=== PATIENT | female | born 1930 | race Caucasian/White ===

== ENCOUNTER 2017-12-26 07:37 | Inpatient (IN) | payer MEDICARE ==
[2017-12-26] VITALS (51 sets, daily range): BP systolic 118–152; BP diastolic 59–122
[~2017-12-26] VITALS: Ht 157.5 cm; Wt 49.2 kg
[~2017-12-26 07:37] MED LIST: ASPIRIN CHEW81 MG PO; CEPHALEXIN500 MG PO; CLONAZEPAM0.5 MG PO; FEROCON CAPSUL1 EACH PO; LASIX20 MG PO; LIPITOR20 MG PO; LOPRESSOR25 MG PO; SODIUM BICARBO650 MG PO
[2017-12-26] MEDS ORDERED: PIPERACILLIN/TAZO 2.25 GM 50 ML IV STA (07:43)
[2017-12-26] MEDS ORDERED: ALBUTEROL SULF 0.083% NEB SOLN 3 ML NEB NEB STA (07:43)
[2017-12-26] MEDS ORDERED: ASPIRIN 81 MG CHEW TAB PO ONE (07:45)
[2017-12-26] MEDS: SODIUM CHLORIDE FLUSH 10 ML SYR INJ PRN ×2 (08:00→12:31)
[2017-12-26 08:37] LABS: BASOPHILS % 0.1 % (0.0-1.0); EOSINOPHILS % 0.1 % (0.0-6.0); LYMPHOCYTES # (AUTO) 0.7 (1.0-3.2); LYMPHOCYTES % 4.7 % (18.0-39.1); MEAN CORPUSCULAR HEMOGLOBIN 27.3 pg (28-32); MEAN CORPUSCULAR HGB CONC 30.9 g/dL (31-35); MEAN CORPUSCULAR VOLUME 88.4 fL (81-99); MONOCYTES # (AUTO) 0.4 (0.2-0.8); MONOCYTES % 2.5 % (4.4-11.3); NEUTROPHILS # (AUTO) 13.9 (2.1-6.9); NEUTROPHILS % 91.9 % (38.7-80.0); PLATELET COUNT 311 x10e3/uL (140-360); RED BLOOD COUNT 2.49 x10e6/uL (3.6-5.1); RED CELL DISTRIBUTION WIDTH 16.6 % (11.7-14.4)
[2017-12-26] MEDS ORDERED: SENNOSIDES-DOC1 EACH PO (08:37)
[2017-12-26] MEDS ORDERED: SERTRALINE HCL50 MG PO (08:37)
[2017-12-26] MEDS ORDERED: LEVOTHYROXINE75 MCG PO (08:37)
[2017-12-26] MEDS ORDERED: ASPIRIN EC81 MG PO (08:37)
[2017-12-26] MEDS ORDERED: MEGESTROL ACETA40 MG PO (08:37)
[2017-12-26] MEDS ORDERED: IPRAT-ALBUT 0.5-3 ML INH (08:37)
[2017-12-26] MEDS ORDERED: METOPROLOL TART50 MG PO (08:37)
[2017-12-26] MEDS ORDERED: PANTOPRAZOLE SO40 MG PO (08:37)
[2017-12-26] MEDS ORDERED: CALCIUM ACETAT667 MG PO (08:37)
[2017-12-26] MEDS ORDERED: ALPRAZOLAM0.25 MG PO (08:37)
[2017-12-26] MEDS ORDERED: PROMETHAZINE HC25 M1 PO (08:37)
--- NOTE | 2017-12-26 08:37 | Diagnostic Imaging Report ---
EXAMINATION: CHEST SINGLE (PORTABLE) INDICATION: Shortness of breath. Pain. COMPARISON: /December 18, 2016 FINDINGS: AP view TUBES and LINES: Left sided tunneled double lumen central venous catheter. Distal tip within the right atrium. LUNGS: Bilateral pulmonary edema with possible superimposed infection. PLEURA: No pneumothorax. Small bilateral pleural effusions. HEART AND MEDIASTINUM: Enlarged cardiac silhouette. Aorta is calcified and tortuous. BONES AND SOFT TISSUES: No acute osseous lesion. Mild dextroscoliosis of thoracic spine. Soft tissues are unremarkable. UPPER ABDOMEN: No free air under the diaphragm. IMPRESSION: Bilateral alveolar pulmonary edema. Superimposed infection not excluded in the proper clinical setting. Signed by: Dr. Kimmie East M.D. on 12/26/2017 8:33 AM
[2017-12-26 08:39] LABS: ABG PCO2 42 mmHg (41-51); ABG PH 7.43 (7.31-7.41)
[2017-12-26 08:40] LABS: ABG HCO3 29 mmol/L (23-28); ABG PO2 141 mmHg (80-105)
[2017-12-26 08:41] LABS: HEMOGLOBIN 6.8 g/dL (12.0-16.0)
[2017-12-26 08:42] LABS: ABG PCO2 42 mmHg (41-51); ABG PH 7.43 (7.31-7.41)
[2017-12-26 08:43] LABS: ABG HCO3 29 mmol/L (23-28); ABG PO2 141 mmHg (80-105)
[2017-12-26] MEDS ORDERED: SODIUM CHLORIDE 0.9% 250ML 250 ML IV ONE (08:45)
[2017-12-26 08:46] LABS: INR 1.17
[2017-12-26 08:47] LABS: PARTIAL THROMBOPLASTIN TIME 29.1 seconds (23.8-35.5)
[2017-12-26 08:58] LABS: ALBUMIN 2.9 g/dL (3.5-5.0); ALBUMIN/GLOBULIN RATIO 0.7 (0.8-2.0); ANION GAP 19.1 mmol/L (8-16); CALCIUM 9.1 mg/dL (8.4-10.2); CREATININE, SERUM 3.8 mg/dL (0.57-1.11); MAGNESIUM 1.5 MG/DL (1.3-2.1); POTASSIUM 4.1 mmol/L (3.5-5.1)
[2017-12-26 08:59] LABS: CLARITY,URINE CLOUDY (CLEAR); COLOR,URINE AMBER (YELLOW)
[2017-12-26 09:00] LABS: BILIRUBIN,URINE 2+ (NEGATIVE); KETONES,URINE TRACE (NEGATIVE); LEUKOCYTE ESTERASE ,URINE TRACE (NEGATIVE); NITRITE,URINE NEGATIVE (NEGATIVE); PROTEIN,URINE DIPSTICK 3+ (NEGATIVE); URINE UROBILINOGEN 0.2 mg/dL (0.2 - 1)
[2017-12-26] MEDS ORDERED: PANTOPRAZOLE 40 MG 10ML VIAL IV STA (09:00)
[2017-12-26 09:01] LABS: BACTERIA,URINE FEW /HPF; EPITHELIAL CELLS,URINE FEW /LPF; RBC,URINE 21-50 /HPF (0-5); WBC,URINE (MAN) 21-50 /HPF (0-5)
[2017-12-26 09:05] LABS: CREATINE KINASE MB 3.3 ng/mL (0-5.0)
[2017-12-26] MEDS: PIPERACILLIN/TAZO 2.25 GM 50 ML IV SCH ×2 (09:55→20:03)
[2017-12-26] MEDS ORDERED: VANCOMYCIN 1GM/NS 250 ML 250 ML IV ONE (10:30)
[2017-12-26 11:22] LABS: CREATINE KINASE MB 4.7 ng/mL (0-5.0)
[2017-12-26] MEDS ORDERED: ONDANSETRON HCL INJ 2 MG/ML VIAL ONE (11:50)
[2017-12-26] MEDS ORDERED: ONDANSETRON HCL INJ 2 MG/ML VIAL IV PRN (12:00)
[2017-12-26] MEDS: ALBUTEROL SULF 0.083% NEB SOLN 3 ML NEB NEB SCH ×4 (12:04→22:55)
[2017-12-26] MEDS ORDERED: PROMETHAZINE HCL 25 MG TAB PO PRN (13:30)
[2017-12-26] MEDS ORDERED: SENNA-S TABLET PO PRN (13:30)
--- NOTE | 2017-12-26 13:32 | Consultation ---
DATE OF CONSULTATION: December 26, 2017 REQUESTING PHYSICIAN: Dr. Bello. REASON FOR CONSULTATION: ESRD. Thank you for allowing us to participate in Ms. Corona's care. HISTORY OF PRESENT ILLNESS: This is an 87-year-old female with recent history of CKD that is now progressed to end-stage renal disease. She came in with worsening dyspnea for the last 3 to 4 days, apparently hypoxic en route. She has some swelling, does have trouble with fluid removal on dialysis. She has been progressively getting weak. PAST HISTORY: CKD stage 4, hypertension, anemia of CKD which is now worsened, and end-stage renal disease. SOCIAL HISTORY: Resides at long term. MEDICATIONS: Please see list. REVIEW OF SYSTEMS: She is lethargic and she is somewhat drowsy at this point, unable to obtain review of systems, not cooperating due to drowsiness. She says she is tired. PHYSICAL EXAMINATION GENERAL: Lying in bed, no distress, but does appear frail. VITAL SIGNS: Temperature 98 degrees, pulse 85, blood pressure 150/78. HEENT: Grossly atraumatic. Oral mucosa is pale. NECK: Neck veins are prominent. JVD perhaps 7 to 8 cm. CHEST: Faint crackles at the bases. CARDIAC: Faint systolic murmur. Normal heart tone. ABDOMEN: Benign. Liver palpable in the right costal margin. EXTREMITIES: 1+ edema. NEURO: She is sleepy, but when she does awake a few times, she seems to be appropriate. LABORATORY DATA: Hemoglobin 6.8. UA shows some proteinuria. K is 4.1, serum CO2 is 27, creatinine 3.8, BUN 37. PH 7.43. Chest x-ray is consistent with fluid overload. ASSESSMENT 1. End-stage renal disease. 2. Chronic anemia, which is worsened. 3. Fluid overload. 4. Hypertension. 5. History of failure to thrive. 6. Hyperphosphatemia, on binders. PLAN: Hemodialysis today, transfuse 2 units in dialysis. Because of the fluid overload, I think she will need an extra session today and get back to usual Wednesday, Wednesday, and Wednesday schedule. One dose of Epogen. I will check outpatient labs for iron stores. We will follow along. Job#: [id number] JIMBO
[2017-12-26] MEDS ORDERED: SODIUM CHLORIDE 0.9% 1000ML 1,000 ML ONE (13:49)
[2017-12-26] MEDS ORDERED: HEPARIN SOD (PORCINE) 1000 UNIT/ML SDV ONE (13:49)
[2017-12-26 14:14] LABS: FOLATE 12.4 ng/mL (7.0-15.4)
[2017-12-26 14:53] LABS: FERRITIN 3893.72 ng/mL (4.63-204.00)
[2017-12-26] MEDS: ALBUTEROL/IPRATROPIUM 3 ML NEB INH PRN (17:48)
[2017-12-26 18:40] LABS: CREATINE KINASE MB 7.3 ng/mL (0-5.0)
[2017-12-26 19:15] LABS: HEMATOCRIT 27.1 % (34.2-44.1); HEMOGLOBIN 9.1 g/dL (12.0-16.0)
[2017-12-26] MEDS: METOPROLOL TARTRATE 50 MG TAB PO SCH (20:02)
--- NOTE | 2017-12-26 20:33 | Consultation ---
DATE OF CONSULTATION: December 26, 2017 PULMONARY CRITICAL CARE MEDICINE CONSULT REFERRING PHYSICIAN: Dr. aOkes. REASON FOR REFERRAL: Respiratory failure. HISTORY OF PRESENT ILLNESS: Ms. Corona is a pleasant 87-year-old female with shortness of breath. Patient has a history of CKD and she was just started on dialysis 3 weeks ago. In the last couple of months, she was hospitalized for 10 days and then for 7 days due to renal failure at outside hospital. She was transferred to senior care facility where she was at for 14 days which is better than the last couple of hospitalizations until she became more short of breath. She was able to walk 350 feet at least with a walker at rehab. When she was sent to the emergency room, it was noted that her saturation was 70% on room air. Chest x-ray showed bilateral large pulmonary edema and possible small pleural effusions. Additionally, there was urinalysis abnormality and some anemia. She was recommended for admission to the ICU due to severity of symptoms. PAST MEDICAL HISTORY: Hypertension, end-stage renal disease, left subclavian versus left chest wall vascular access, anemia, hearing impairment, 2017 CVA, 2017 [place]. MEDICATIONS: Medication list reviewed per electronic record includes Zosyn antibiotic and vancomycin antibiotics now. ALLERGIES: No known drug allergies. SOCIAL HISTORY: No smoking, no drinking, no drugs. The patient is from [place], [place], but did live in [place] for 30 years where her son currently lives. She was formerly a sed high school teacher. No smoking, no drinking, no drugs. FAMILY HISTORY: Noncontributory. REVIEW OF SYSTEMS: Cannot get largely due to hearing impairment. OBJECTIVE VITAL SIGNS: Afebrile, vital signs noted per electronic record. GENERAL: Mild increased work of breathing, slightly pale. HEENT: Normocephalic, atraumatic. NECK: Supple. Throat midline. LUNGS: Bilateral air entry. A few rhonchi. CARDIOVASCULAR: S1, S2. No murmurs, rubs, or gallops. ABDOMEN: Soft, nontender. EXTREMITIES: No clubbing, no cyanosis. There is 2+ leg edema. INTEGUMENT: No rash. No purpura. LABORATORY DATA: Potassium 4.1, BUN 37, creatinine 3.8. White count 15, hematocrit 22, platelets 311,000. Urinalysis with 21-50 white cells per high power field. INR 1.17. Chest x-ray with bilateral large edema. IMPRESSION: 1. Pulmonary edema, fluid overload. 2. Possible pneumonia. 3. Abnormal urinalysis, urinary tract infection. 4. Significant anemia. 5. Hypoxemia. 6. End-stage renal disease. 7. History of stroke. 8. History of myocardial infarction. 9. Hypertension. 10. History of hearing impairment. PLAN: At this time, we will continue current treatment. Dialysis planned for today emergently as well as tomorrow. Hopefully, there is some quick improvement. Afterwards, we will reevaluate the chest x-ray to ensure there is no significant pleural effusion. Patient had CT chest at outside hospital which we will attempt to review. Follow up cultures, especially urine culture and treat appropriately with antibiotics. Afterwards, we want the patient to stay strong and moving. It is also reasonable to see why the patient can only go short times outside of the hospital, so we may need to look at her heart or dialysis adequacy or nutrition status. Thank you very much Dr. Oakes for allowing me a chance to participate in care of Ms. Corona. Do not hesitate to contact me if I can help in any way. Job#: [id number] CLEMENT
--- NOTE | 2017-12-26 21:48 | History and Physical ---
HISTORY OF PRESENT ILLNESS: An 87-year-old female, alf resident, who came from the alf because of shortness of breath. She was found to have aspiration pneumonia and acute on chronic systolic congestive heart failure and severe anemia also. REVIEW OF SYSTEMS: The patient is extremely sleepy. She cannot give any information. She is getting dialysis right now. PAST MEDICAL HISTORY: Positive for chronic congestive heart failure which is systolic in nature, end-stage renal disease on dialysis, anemia of chronic disease, coronary artery disease status post Non-STEMI. ALLERGIES: NOT ALLERGIC TO ANY MEDICATION. SOCIAL HISTORY: She lives in alf. PHYSICAL EXAMINATION: VITAL SIGNS: Blood pressure 150/78. Heart rate 68 per minute, respiratory rate 18 per minute. Oxygen pressure 100%. HEART: Regular rhythm. No murmur. No extra sounds. LUNGS: Clear bilaterally. ABDOMEN: Soft. EXTREMITIES: Show no evidence of cyanosis, edema or trauma. BLOOD WORK: We have BMP sodium 139, potassium 4.1, chloride 97. CO2 27. BUN 37, creatinine 3.80. Glucose 144. On the CBC white blood count 15.1, hemoglobin 6.8, hematocrit 22.0, platelet count 311,000. PT 14.0. PTT 29.1. INR 1.17. AST 14, ALT 7. Total bilirubin 0.7, alkaline phosphatase 69,000. We also have chest x-ray which showed an infiltrate in the right perihilar region and right middle lobe and left perihilar region consistent with pneumonia. CHF and vascular congestion. The blood gas shows ph of 7.43, pCO2 of 42, pO2 141, oxygen saturation 99%. EKG showed no acute ischemia, normal sinus rhythm, rate 97 per minute. Normal P waves. Abnormal QRS complex, wide QRS complex, left bundle branch block, left axis deviation. Abnormal ST-T waves. Abnormal QT. FINAL IMPRESSION 1. Aspiration pneumonia. 2. Hzpqj-hb-umioysy systolic congestive heart failure. 3. End-stage disease on dialysis. 4. Gbqyc-cu-wrdlikm anemia. 5. Coronary artery disease, status post Non-STEMI. 6. Leukocytosis. PLAN OF TREATMENT: Continue albuterol q.4 h. Zosyn 3.375 grams IV piggyback q.6 hours. Going to consult Dr. Abrams for pulmonary and also going to consult Dr. Figueredo for renal services. Going to resume alf medications. Patient is in the ICU right now. Time Spent: Around 45 to 50 minutes. Job#: [id number] YOVANNY
[2017-12-26] MEDS ORDERED: HYDROCODONE/APAP 10MG-325MG TAB PO PRN (22:30)
[2017-12-26] MEDS ORDERED: CYANOCOBALAMIN INJ 1,000 MCG/ML VIAL IM STA (23:48)
[2017-12-27] VITALS (79 sets, daily range): BP systolic 105–155; BP diastolic 51–103
[2017-12-27] MEDS: PIPERACILLIN/TAZO 2.25 GM 50 ML IV SCH ×5 (01:27→23:09)
[2017-12-27] MEDS: ALBUTEROL SULF 0.083% NEB SOLN 3 ML NEB NEB SCH ×6 (03:02→23:10)
[2017-12-27 03:07] LABS: CALCIUM 8.3 mg/dL (8.4-10.2); CREATININE, SERUM 3.17 mg/dL (0.57-1.11)
[2017-12-27 03:31] LABS: ANION GAP 14.3 mmol/L (8-16); POTASSIUM 4.3 mmol/L (3.5-5.1)
[2017-12-27 03:37] LABS: CREATINE KINASE MB 3.7 ng/mL (0-5.0)
[2017-12-27] MEDS: LEVOTHYROXINE SODIUM 75 MCG TAB PO SCH (05:42)
[2017-12-27 06:05] LABS: BASOPHILS % 0.3 % (0.0-1.0); EOSINOPHILS # (AUTO) 0.1 (0.0-0.4); EOSINOPHILS % 0.4 % (0.0-6.0); HEMATOCRIT 26.5 % (34.2-44.1); HEMOGLOBIN 8.6 g/dL (12.0-16.0); LYMPHOCYTES # (AUTO) 1.9 (1.0-3.2); LYMPHOCYTES % 16.4 % (18.0-39.1); MEAN CORPUSCULAR HEMOGLOBIN 28.8 pg (28-32); MEAN CORPUSCULAR HGB CONC 32.5 g/dL (31-35); MEAN CORPUSCULAR VOLUME 88.6 fL (81-99); MONOCYTES # (AUTO) 0.5 (0.2-0.8); MONOCYTES % 4.1 % (4.4-11.3); NEUTROPHILS # (AUTO) 9.1 (2.1-6.9); NEUTROPHILS % 78.3 % (38.7-80.0); PLATELET COUNT 245 x10e3/uL (140-360); RED BLOOD COUNT 2.99 x10e6/uL (3.6-5.1); RED CELL DISTRIBUTION WIDTH 15.6 % (11.7-14.4)
[2017-12-27 06:24] LABS: ALBUMIN 2.5 g/dL (3.5-5.0); ALBUMIN/GLOBULIN RATIO 0.7 (0.8-2.0); ANION GAP 13.6 mmol/L (8-16); CALCIUM 8.6 mg/dL (8.4-10.2); CREATININE, SERUM 3.5 mg/dL (0.57-1.11); POTASSIUM 4.6 mmol/L (3.5-5.1)
--- NOTE | 2017-12-27 06:37 | Diagnostic Imaging Report ---
CHEST SINGLE (PORTABLE), 12/27/2017 5:00 AM Technique: CHEST SINGLE (PORTABLE) Comparison: Previous day Clinical history: Effusion Findings: See Impression Impression: 1. Lines/Tubes: Stable left sided dialysis catheter over the inferior right atrium. 2. Stable enlarged cardiomediastinal silhouette. 3. Unchanged bilateral pulmonary opacities which may reflect edema and/or infection. Small effusions. Signed by: Dr Samantha Dang MD on 12/27/2017 6:33 AM
[2017-12-27 07:05] LABS: PHOSPHORUS 3.4 MG/DL (2.3-4.7)
[2017-12-27] MEDS: PANTOPRAZOLE SOD 40 MG TABEC PO SCH (07:36)
[2017-12-27 08:06] LABS: FERRITIN 2770.41 ng/mL (4.63-204.00)
[2017-12-27] MEDS: ASPIRIN 81 MG ENTERIC COATED PO SCH (08:25)
[2017-12-27] MEDS: CYANOCOBALAMIN INJ 1,000 MCG/ML VIAL IM SCH (08:25)
[2017-12-27] MEDS: MEGESTROL ACETATE 40 MG TAB PO SCH (08:26)
[2017-12-27] MEDS: SERTRALINE HCL 50 MG TAB PO SCH (08:26)
[2017-12-27] MEDS: METOPROLOL TARTRATE 50 MG TAB PO SCH ×2 (08:26→16:55)
[2017-12-27] MEDS: CALCIUM ACETATE 667 MG GELCAP PO SCH (08:26)
[2017-12-27] MEDS ORDERED: HEPARIN SOD (PORCINE) 1000 UNIT/ML SDV IV PRN (08:30)
[2017-12-27] MEDS ORDERED: SODIUM CHLORIDE 0.9% 1000ML 1,000 ML IV PRN (08:45)
[2017-12-27] MEDS ORDERED: FUROSEMIDE INJ 10 MG/ML 4 ML VIAL IV SCH (09:00)
[2017-12-27] MEDS ORDERED: POTASSIUM CHLORIDE 20 MEQ TAB CR PO SCH (09:00)
--- NOTE | 2017-12-27 13:09 | Consultation ---
DATE OF CONSULTATION: December 27, 2017 CARDIOLOGY CONSULTATION REASON FOR CONSULTATION: Elevated troponin, CHF. HISTORY OF PRESENT ILLNESS: This is an 87-year-old female with history of CHF, hypertension, end-stage renal disease, anemia, CVA, hard of hearing, hyperlipidemia, hypothyroidism. She presents to [facility] ER with complaints of shortness of breath, fatigue, weakness. Was noted with sats in the 70s on room air. X-ray was done showing bilateral pulmonary edema. Labs also noted. Patient was extremely anemic with hemoglobin of 6.8 and was given 2 units of blood. Also, with labs was noted with elevated troponin. Therefore, cardiology was consulted. Patient was seen in room on dialysis in no acute distress. However, the patient is very hard of hearing, and it is very hard to get any information from the patient. No complaint of chest pain. Seems to be breathing comfortably currently. PAST MEDICAL HISTORY: CHF, hypertension, end-stage renal disease on HD, anemia, hard of hearing, hyperlipidemia, hypothyroidism, history of gastritis and esophagitis, malignant melanoma of the eye. SURGICAL HISTORY: EGD in 2017 showing gastritis and esophagitis. Thyroid surgery. Left IJ HD tunneled catheter. SOCIAL HISTORY: Lives at [facility]. She is a . No alcohol use. Former smoker. FAMILY HISTORY: Unable to obtain. REVIEW OF SYSTEMS: Very difficult to obtain secondary to patient hard of hearing. Does not have her hearing aids. However, denies any chest pains. Denies any shortness of breath currently. No palpitations. No PND. No orthopnea. PHYSICAL EXAMINATION VITALS: Currently, temperature 98.6, pulse 79, respiratory rate 16, blood pressure 150/83, pulse ox 94% on 2 liters nasal cannula. GENERAL: In no acute distress. Appears her stated age. Unable to obtain much information due to patient hard of hearing and does not have her hearing aides. SKIN: No rashes or bruises noted. HEENT: Normocephalic. Pupils are equal and reactive. Extraocular motor intact. Trachea midline. Oral mucosa is pink. No thyromegaly noted. Soft carotid bruit noted bilaterally. Positive JVD. LUNGS: Bilateral breath sounds with crackles throughout. HEART: Regular rate and rhythm. Soft systolic murmur heard in right upper sternal border. PMI in about the 5th intercostal space. There is a left IJ tunneled HD catheter. ABDOMEN: Soft, nontender, nondistended. No organomegaly noted. MUSCULOSKELETAL: Good muscle strength throughout. No lower extremity edema. VASCULAR: There are +2 bilateral radial pulses and +1 DP and PT pulses bilaterally. NEUROLOGIC: Cranial nerves II through XII seem intact. LABS: Sodium 139, potassium 4.1, creatinine 3.8, BUN 37. White count 15, hemoglobin 6.8, hematocrit 22, platelets 311. IMAGING: Initial chest x-ray is showing bilateral alveolar peripheral edema. However, superimposed infection could not be excluded. EKG: Normal sinus rhythm with a left bundle-branch block. ASSESSMENT AND PLAN 1. Akpim-ri-fzdphep systolic heart failure. 2. Pneumonia. 3. End-stage renal disease on hemodialysis. 4. Anemia. 5. Hyperlipidemia. 6. Hypothyroidism. 7. Elevated troponin, most likely demand ischemia. However, coronary artery disease very likely in this patient given her medical history. 8. Patient presents with shortness of breath and noted with some pulmonary edema and questionable pneumonia and is on therapy. However, labs noted with elevated troponin. Currently, the patient is denying any chest pain. However, coronary artery disease is very likely in this patient. Also presents with severe anemia. For now, we will treat the patient medically with a low-dose beta lalo as blood pressure and heart rate permit. Will obtain a lipid panel and start statin therapy. Echo has been ordered and prelim ultrasound showing EF about 30%. However, cardiology will finalize the study. Will continue to monitor the patient and evaluate and adjust cardiac therapy as clinical course progresses. Thank you very much for this consult. Dictated by: Darwin Sprague NP Job#: [id number]
--- NOTE | 2017-12-27 18:50 | Diagnostic Imaging Report ---
PROCEDURE:US RETROPERITONEAL ( KIDNEY ). COMPARISON:Patients [facility], US, US RETROPERITONEAL ( KIDNEY )., 12/21/2016, 12:17. INDICATIONS:Renal failure TECHNIQUE: Reyes-scale and color sonographic images of the bilateral kidneys and bladder where obtained in transverse and longitudinal planes. FINDINGS: RIGHT KIDNEY: 9.2 cm in length. Cysts: None Solid masses: None Stones: None Hydronephrosis: None Echogenicity: Increased LEFT KIDNEY: 9.0 cm in length. Cysts: None Solid masses: None Stones: None Hydronephrosis: None Echogenicity: Increased Bladder: Under distended. Survey images of the liver and spleen demonstrate no focal abnormality. CONCLUSION: Increased renal echotexture consistent with medical renal disease. No renal mass or hydronephrosis. Dictated by: Guerline Argueta M.D. on 12/27/2017 at 18:54 Electronically approved by: Guerline Argueta M.D. on 12/27/2017 at 18:54
[2017-12-27] MEDS: ATORVASTATIN 20 MG TAB PO SCH (20:38)
--- NOTE | 2017-12-27 21:33 | Progress Note ---
DATE: December 27, 2017 INTERNAL MEDICINE PROGRESS NOTE SUBJECTIVE: An 87-year-old female, who is doing better today. PHYSICAL EXAM: VITAL SIGNS: Blood pressure 150/78. Temperature 98 degrees. Heart rate 68 per minute. Respiratory rate is 18 per minute. Oxygen saturation 100%. HEART: Regular rhythm. Normal S1, S2 sounds. LUNGS: Clear bilaterally. ABDOMEN: Soft. EXTREMITIES: Show no evidence of cyanosis or trauma. LABS: On the BMP, sodium 139, potassium 4.1, chloride 97, CO2 27, BUN 37, creatinine 3.80, glucose 144. On the CBC, white blood count 15.1, hemoglobin before the blood transfusion was 6.8 and hematocrit 32.0, platelet count 311,000. PT 14.0, PTT 29.1, INR 1.17. AST 14, ALT 7, total bilirubin 0.7, alkaline phosphatase 69. FINAL IMPRESSION: 1. Aspiration pneumonia. 2. Fddtt-ck-qlquxrb systolic congestive heart failure. 3. End-stage renal disease, on dialysis. 4. Chronic anemia secondary to end-stage renal disease. 5. Coronary artery disease, status post non-ST elevation myocardial infarction. PLAN OF TREATMENT: Continue albuterol q.4 h. Continue Zosyn 3.375 g IV q.6 which needs to redosed according to the renal dose. EGD is going to be considered to evaluate anemia when the patient is more medically stable. Continue monitoring BUN, creatinine, electrolytes. Continue monitoring CBC. Continue diuresing the patient. Follow up urine culture, blood cultures. We are going to follow the CBC after 2 units of blood transfusion she got yesterday. She received Epogen also. Also her medications are going to be Zosyn 2.25 g IV q.6 h., adjusted to renal dose, Tylenol 650 mg q.4 h. as needed for pain or fever, albuterol q.4 h., albuterol and Atrovent q.4 h. as needed, aspirin 81 mg daily, Lipitor 20 mg daily, calcium acetate 1334 mg daily, vitamin B12 1000 mcg has been given IM daily, furosemide 40 mg IV daily, heparin 4000 units for dialysis p.r.n., levothyroxine 75 mcg p.o. daily, Megace 40 mg daily, metoprolol 50 mg twice a day, Zofran 4 mg IV q.4 h. as needed, Protonix 40 mg daily, potassium 20 mEq daily, Zoloft 50 mg daily. Actually I am going to discontinue the potassium because potassium supplements in a dialysis patient can lead to hyperkalemia. I discussed the case with Dr. Gallardo. Ejection fraction is 30%. Prognosis is very poor. Job#: [id number] GE
[2017-12-27] MEDS ORDERED: SODIUM CHLORIDE 0.9% 250ML 250 ML ONE (22:59)
[2017-12-28] VITALS (61 sets, daily range): BP systolic 36–149; BP diastolic 28–110
--- NOTE | 2017-12-28 00:32 | Progress Note ---
DATE: December 27, 2017 PULMONARY MEDICINE PROGRESS NOTE SUBJECTIVE: Ms. Corona was seen and examined at the bedside. She continues to have slow improvement. She had hemodialysis today. However, blood pressure was dropping during dialysis, so it was very cautious. 2.6 L in, 2.0 L out. A 97% oxygen saturation on 5 L per minute by nasal cannula at this time. Chest x-ray was unchanged opacities. REVIEW OF SYSTEMS: No bleeding, no rash. OBJECTIVE VITAL SIGNS: Afebrile. Vital signs noted per electronic record. GENERAL: In no acute distress, alert and calm. HEENT: Normocephalic, atraumatic. NECK: Supple. Throat midline. LUNGS: Bilateral air entry, few rhonchi. CARDIOVASCULAR: S1, S2. No murmurs, rubs or gallops. ABDOMEN: Soft, nontender. EXTREMITIES: No clubbing, no cyanosis. There is 1 to 2+ edema. INTEGUMENT: No rash, no purpura. LABS: 4.6 potassium, 36 BUN, 3.5 creatinine. 12 white blood count, 27 hematocrit which increased after blood transfusion, 345,000 platelets. IMPRESSIONS AND PLAN 1. Pulmonary edema. 2. Possible acute coronary syndrome. 3. End-stage renal disease. 4. Bilateral pneumonia. 5. Anemia, status post blood transfusion. 6. History of cerebrovascular accident. 7. History of myocardial infarction. Continue current treatment at this time. Will evaluate records from outside hospital. We are doing this with cardiology today. Blood transfusions were already given. Repeat chest x-ray tomorrow. Continue getting negative fluid balance as much as tolerated noting that blood pressure is dropping with dialysis slightly. Antibiotics are reasonable and continue these. Will follow him closely. Job#: [id number] CQ
[2017-12-28] MEDS: ALBUTEROL SULF 0.083% NEB SOLN 3 ML NEB NEB SCH ×6 (03:05→23:15)
[2017-12-28] MEDS: LEVOTHYROXINE SODIUM 75 MCG TAB PO SCH (05:52)
[2017-12-28] MEDS: PIPERACILLIN/TAZO 2.25 GM 50 ML IV SCH ×4 (05:52→23:25)
[2017-12-28 06:13] LABS: ALBUMIN 2.3 g/dL (3.5-5.0); ALBUMIN/GLOBULIN RATIO 0.6 (0.8-2.0); ANION GAP 16.4 mmol/L (8-16); CALCIUM 8.2 mg/dL (8.4-10.2); CREATININE, SERUM 3.67 mg/dL (0.57-1.11); POTASSIUM 4.4 mmol/L (3.5-5.1)
--- NOTE | 2017-12-28 06:54 | Diagnostic Imaging Report ---
EXAMINATION: CHEST SINGLE (PORTABLE) INDICATION: CHF COMPARISON: December 27, 2017 FINDINGS: TUBES and LINES: Left IJ dual-lumen dialysis catheter stable, in good position. LUNGS: Lungs are not well inflated. Interval increased in alveolar opacities and interlobular septi thickening PLEURA: No pleural effusion or pneumothorax. HEART AND MEDIASTINUM: Cardiac size is mildly enlarged. There are atherosclerotic calcifications within the aorta. BONES AND SOFT TISSUES: No acute osseous lesion. Soft tissues are unremarkable. UPPER ABDOMEN: No free air under the diaphragm. IMPRESSION: Worsening fluid overload/pulmonary edema Signed by: Dr. Stephan Perrin M.D. on 12/28/2017 6:50 AM
[2017-12-28] MEDS: PANTOPRAZOLE SOD 40 MG TABEC PO SCH (07:30)
[2017-12-28] MEDS ORDERED: BUMETANIDE 10 MG in SODIUM CHLORIDE 0.9% 100 ML 60 ML IV SCH (08:30)
[2017-12-28] MEDS: ASPIRIN 81 MG ENTERIC COATED PO SCH (08:51)
[2017-12-28] MEDS: IRON-VITAMIN-MINERAL CAPSULE PO SCH ×3 (08:51→17:00)
[2017-12-28] MEDS: METOPROLOL TARTRATE 50 MG TAB PO SCH (08:51)
[2017-12-28] MEDS: CYANOCOBALAMIN INJ 1,000 MCG/ML VIAL IM SCH (08:51)
[2017-12-28] MEDS: MEGESTROL ACETATE 40 MG TAB PO SCH (08:51)
[2017-12-28] MEDS: SERTRALINE HCL 50 MG TAB PO SCH ×2 (08:51→09:00)
[2017-12-28] MEDS: CALCIUM ACETATE 667 MG GELCAP PO SCH (08:51)
[2017-12-28] MEDS: CARVEDILOL 3.125 MG TAB PO SCH (17:00)
[2017-12-28] MEDS: ATORVASTATIN 20 MG TAB PO SCH (20:15)
[2017-12-29] VITALS (24 sets, daily range): BP systolic 101–145; BP diastolic 54–104
[2017-12-29] MEDS: ALBUTEROL SULF 0.083% NEB SOLN 3 ML NEB NEB SCH ×6 (02:55→23:30)
[2017-12-29] MEDS: PIPERACILLIN/TAZO 2.25 GM 50 ML IV SCH ×3 (05:24→18:19)
[2017-12-29] MEDS: LEVOTHYROXINE SODIUM 75 MCG TAB PO SCH (05:24)
[2017-12-29 06:11] LABS: ALBUMIN 2.3 g/dL (3.5-5.0); ALBUMIN/GLOBULIN RATIO 0.6 (0.8-2.0); ANION GAP 15.6 mmol/L (8-16); CALCIUM 8.4 mg/dL (8.4-10.2); CREATININE, SERUM 3.34 mg/dL (0.57-1.11); POTASSIUM 4.6 mmol/L (3.5-5.1)
--- NOTE | 2017-12-29 06:23 | Diagnostic Imaging Report ---
EXAMINATION: CHEST SINGLE (PORTABLE) INDICATION: Pneumonia COMPARISON: 12/28/2017 FINDINGS: TUBES and LINES: Left IJ dual-lumen dialysis catheter stable, in good position. LUNGS: Lungs are not well inflated. Interval decreased in alveolar opacities and interlobular septi thickening. More confluent airspace opacity in the right upper lobe with air bronchogram is suggestive of pneumonia PLEURA: Trace of right pleural effusion. HEART AND MEDIASTINUM: Cardiac size is mildly enlarged. There are atherosclerotic calcifications within the aorta. BONES AND SOFT TISSUES: No acute osseous lesion. Soft tissues are unremarkable. UPPER ABDOMEN: No free air under the diaphragm. IMPRESSION: 1. Mild interval improvement in fluid overload/pulmonary edema. 2. Right upper lobe airspace disease is more confluent suggestive of pneumonia Signed by: Dr. Stephan Perrin M.D. on 12/29/2017 6:20 AM
[2017-12-29] MEDS: PANTOPRAZOLE SOD 40 MG TABEC PO SCH (07:45)
[2017-12-29] MEDS: IRON-VITAMIN-MINERAL CAPSULE PO SCH ×2 (09:00→17:00)
[2017-12-29] MEDS: CARVEDILOL 3.125 MG TAB PO SCH ×2 (09:00→17:50)
[2017-12-29] MEDS: CALCIUM ACETATE 667 MG GELCAP PO SCH (09:00)
[2017-12-29] MEDS: SERTRALINE HCL 50 MG TAB PO SCH (09:00)
[2017-12-29] MEDS: MEGESTROL ACETATE 40 MG TAB PO SCH (09:00)
[2017-12-29] MEDS: ASPIRIN 81 MG ENTERIC COATED PO SCH (09:00)
[2017-12-29] MEDS: CYANOCOBALAMIN INJ 1,000 MCG/ML VIAL IM SCH (11:23)
--- NOTE | 2017-12-29 15:47 | Progress Note ---
DATE: December 28, 2017 PULMONARY MEDICINE PROGRESS NOTE SUBJECTIVE: Mrs. Corona was seen and examined at the bedside. Patient continues to have steady state. Patient with hemodialysis with 3.4 L of goal today. Three liters per minute by nasal cannula. A 97% oxygen saturation. Despite negative fluid balance since yesterday, her chest x-ray is a little bit worse today. REVIEW OF SYSTEMS: No headache, no rash. OBJECTIVE VITAL SIGNS: Afebrile. Vital signs noted per the chart record. GENERAL: No , alert and calm. HEENT: Normocephalic, atraumatic. NECK: Supple. Throat midline. LUNGS: Bilateral air entry, few rare rhonchi. CARDIOVASCULAR: S1, S2. No murmurs, rubs, or gallops. ABDOMEN: Soft, nontender. EXTREMITIES: No clubbing, no cyanosis. There is a 1+ to 2+ edema. INTEGUMENT: No rash, no purpura. LABS: BUN 37, creatinine 3.7. White blood count 12, hematocrit 27, and platelets 245,000. IMPRESSIONS 1. Fluid overload. 2. Chronic pneumonitis. 3. End-stage renal disease. 4. Weakness. 5. History of stroke. 6. History of myocardial infarction. 7. Hypertension. PLAN 1. Continue current treatment. 2. Dialyze as treatable. 3. Ensure chest x-ray gets better. If it does not, we will offer bronchoscopy or surgical lung biopsy. However, given patient's age, it will have to be a talk with the entire family and patient to make sure that they want aggressive therapy in this state. 4. At the same time, empirical treatment with steroids would also be high risk given the infection risk. 5. Continue antibiotics for now. 6. Check AFB sputum for nontuberculous mycobacterial organisms. 7. Check noninvasive assessments for fungal organisms. Job#: [id number]
[2017-12-29] MEDS: ATORVASTATIN 20 MG TAB PO SCH (20:48)
--- NOTE | 2017-12-29 22:46 | Progress Note ---
DATE: December 29, 2017 PULMONARY MEDICINE PROGRESS NOTE SUBJECTIVE: Mrs. Corona was seen and examined at the bedside. She continues to have some weakness. I discussed her recent CAT scan findings additionally today with her daughter who was at bedside. At this point, patient wants to continue treatment rather than early investigations with invasive procedures. Patient was able to tolerate dialysis yesterday. No new fever. REVIEW OF SYSTEMS: No headache, no rash. OBJECTIVE VITAL SIGNS: Afebrile. Vital signs noted per the chart record. GENERAL: No acute distress, alert, calm, and pleasant. HEENT: Normocephalic, atraumatic. NECK: Supple. Throat midline. LUNGS: Bilateral air entry, decreased effort, decreased breath sounds. CARDIOVASCULAR: S1, S2. No murmurs, rubs, or gallops. ABDOMEN: Soft, nontender. EXTREMITIES: No clubbing, no cyanosis. There is only 1+ edema, much better. INTEGUMENT: No rash, no purpura. LABS: BUN 35, creatinine 3.3, potassium 4.6. White blood count 11, hematocrit 27. IMPRESSIONS 1. Fluid overload, improved. 2. Chronic pneumonitis, suggested . 3. Weakness. 4. End-stage renal disease. 5. Pleural effusions, small. PLAN: At this time, continue current treatment. We will follow along closely. Continue to dialyze patient as per renal and they do want the patient in the ICU reportedly. Continue . We will get the patient function in the best possible with thereafter the patient should consider if they want at that time. There could be consideration for bronchoscopy with cell count differential but given her present state and age they are trying to best avoid any invasive diagnostic. Job#: [id number]
[2017-12-30] VITALS (7 sets, daily range): BP systolic 101–155; BP diastolic 53–72
[2017-12-30] MEDS ORDERED: SODIUM CHLORIDE 0.9% 250ML 250 ML ONE (00:01)
[2017-12-30] MEDS: PIPERACILLIN/TAZO 2.25 GM 50 ML IV SCH ×4 (00:20→18:03)
[2017-12-30] MEDS: ALBUTEROL SULF 0.083% NEB SOLN 3 ML NEB NEB SCH ×6 (03:30→23:00)
[2017-12-30] MEDS: LEVOTHYROXINE SODIUM 75 MCG TAB PO SCH (06:16)
--- NOTE | 2017-12-30 07:02 | Diagnostic Imaging Report ---
EXAMINATION: CHEST SINGLE (PORTABLE) INDICATION: Pneumonia. COMPARISON: 12/29/2017 FINDINGS: TUBES and LINES: Left IJ dual-lumen dialysis catheter stable, in good position. LUNGS: Lungs are not well inflated. Interval decreased in alveolar opacities and interlobular septi thickening. More confluent airspace opacity in the right upper lobe with air bronchogram continue to improve PLEURA: Trace of right pleural effusion. HEART AND MEDIASTINUM: Cardiac size is mildly enlarged. There are atherosclerotic calcifications within the aorta. BONES AND SOFT TISSUES: No acute osseous lesion. Soft tissues are unremarkable. UPPER ABDOMEN: No free air under the diaphragm. IMPRESSION: 1. Continued to improved in fluid overload/pulmonary edema. 2. Right upper lobe airspace disease is consistent with improving infectious process Signed by: Dr. Stephan Perrin M.D. on 12/30/2017 6:59 AM
[2017-12-30] MEDS: PANTOPRAZOLE SOD 40 MG TABEC PO SCH (08:23)
[2017-12-30] MEDS: ASPIRIN 81 MG ENTERIC COATED PO SCH (08:23)
[2017-12-30] MEDS: CYANOCOBALAMIN INJ 1,000 MCG/ML VIAL IM SCH (08:23)
[2017-12-30] MEDS: IRON-VITAMIN-MINERAL CAPSULE PO SCH ×3 (08:24→17:48)
[2017-12-30] MEDS: CALCIUM ACETATE 667 MG GELCAP PO SCH (08:24)
[2017-12-30] MEDS: SERTRALINE HCL 50 MG TAB PO SCH (08:24)
[2017-12-30] MEDS: MEGESTROL ACETATE 40 MG TAB PO SCH (08:24)
[2017-12-30] MEDS: CARVEDILOL 3.125 MG TAB PO SCH ×2 (09:00→17:48)
[2017-12-30] MEDS: ALPRAZOLAM 0.25 MG TAB PO PRN (09:04)
[2017-12-30 09:44] LABS: BASOPHILS # (AUTO) 0.1 (0.0-0.1); BASOPHILS % 0.5 % (0.0-1.0); EOSINOPHILS # (AUTO) 0.8 (0.0-0.4); EOSINOPHILS % 8.6 % (0.0-6.0); HEMATOCRIT 29.1 % (34.2-44.1); HEMOGLOBIN 9.5 g/dL (12.0-16.0); LYMPHOCYTES # (AUTO) 1.6 (1.0-3.2); LYMPHOCYTES % 17.8 % (18.0-39.1); MEAN CORPUSCULAR HEMOGLOBIN 28.8 pg (28-32); MEAN CORPUSCULAR HGB CONC 32.6 g/dL (31-35); MEAN CORPUSCULAR VOLUME 88.2 fL (81-99); MONOCYTES # (AUTO) 0.5 (0.2-0.8); MONOCYTES % 5.2 % (4.4-11.3); NEUTROPHILS # (AUTO) 6.2 (2.1-6.9); PLATELET COUNT 371 x10e3/uL (140-360); RED CELL DISTRIBUTION WIDTH 15.9 % (11.7-14.4)
[2017-12-30 09:58] LABS: ANION GAP 20.3 mmol/L (8-16); CALCIUM 8.3 mg/dL (8.4-10.2); CREATININE, SERUM 4.91 mg/dL (0.57-1.11); POTASSIUM 4.3 mmol/L (3.5-5.1)
--- NOTE | 2017-12-30 12:33 | Progress Note ---
DATE: December 30, 2017 PULMONARY MEDICINE PROGRESS NOTE SUBJECTIVE: Mrs. Corona was seen and examined at the bedside. She continues to have oxygen with 98% oxygen saturation. She is on 3 L per minute by nasal cannula. Three bowel movements yesterday. The patient did test positive for occult blood in stool in the interim. No acute respiratory distress. We still have not challenged her very well with therapy to see what she can do. REVIEW OF SYSTEMS: No bleeding, no double vision. OBJECTIVE VITAL SIGNS: Afebrile. Vital signs noted per the chart record. GENERAL: No acute distress, alert and calm. HEENT: Normocephalic, atraumatic. NECK: Supple. Throat midline. LUNGS: Bilateral air entry, a few rhonchi. CARDIOVASCULAR: S1, S2. No murmurs, rubs, or gallops. ABDOMEN: Soft, nontender. EXTREMITIES: No clubbing, no cyanosis. There is no edema. INTEGUMENT: No rash, no purpura. LABS: Include 9 white count, 29 hematocrit, 361 platelets, 4.3 potassium, 21 bicarbonate, 56 BUN, 4.9 creatinine. Chest x-ray with right upper lobe air space disease with additional fluid overload superimposed. IMPRESSION AND PLAN 1. Chronic pneumonitis, acute on chronic. 2. Fluid overload. 3. End-stage renal disease. 4. Severe protein-calorie malnutrition. 5. Weakness. Continue mobilizing this patient. I will offer her bronchoscopy and then even consideration for open lung surgical biopsy if nothing grows from this bronchoscopy. I reviewed the outside bronchoscopy, which did not have special assessment for opportunistic infections. I reviewed the right heart catheterization performed on November 02, 2017, where the mean pulmonary artery pressure was 28 with wedge pressure of 21. Cardiac output was 2.6 index. Job#: [id number]
[2017-12-30] MEDS: ATORVASTATIN 20 MG TAB PO SCH (21:57)
[2017-12-31] VITALS (8 sets, daily range): BP systolic 138–174; BP diastolic 65–75
[2017-12-31] MEDS: PIPERACILLIN/TAZO 2.25 GM 50 ML IV SCH ×4 (00:08→17:34)
[2017-12-31] MEDS: ALBUTEROL SULF 0.083% NEB SOLN 3 ML NEB NEB SCH ×6 (02:30→23:00)
[2017-12-31] MEDS: LEVOTHYROXINE SODIUM 75 MCG TAB PO SCH (05:48)
--- NOTE | 2017-12-31 06:47 | Diagnostic Imaging Report ---
EXAMINATION: CHEST SINGLE (PORTABLE) INDICATION: CHF COMPARISON: 12/30/2017 FINDINGS: TUBES and LINES: Left IJ dual-lumen dialysis catheter stable, in good position. LUNGS: Lungs are not well inflated. Stable alveolar opacities and interlobular septi thickening. Stable airspace opacity in the right upper lobe with air bronchogram continue to improve PLEURA: Trace of right pleural effusion. HEART AND MEDIASTINUM: Cardiac size is mildly enlarged. There are atherosclerotic calcifications within the aorta. BONES AND SOFT TISSUES: No acute osseous lesion. Soft tissues are unremarkable. UPPER ABDOMEN: No free air under the diaphragm. IMPRESSION: 1. Stable fluid overload/pulmonary edema. 2. Stable right upper lobe airspace disease is consistent with improving infectious process Signed by: Dr. Stephan Perrin M.D. on 12/31/2017 6:44 AM
[2017-12-31] MEDS: SERTRALINE HCL 50 MG TAB PO SCH (09:00)
[2017-12-31] MEDS ORDERED: LOSARTAN POTASSIUM 100 MG TAB PO SCH (09:00)
[2017-12-31] MEDS: IRON-VITAMIN-MINERAL CAPSULE PO SCH ×2 (10:14→17:34)
[2017-12-31] MEDS: MEGESTROL ACETATE 40 MG TAB PO SCH (10:14)
[2017-12-31] MEDS: PANTOPRAZOLE SOD 40 MG TABEC PO SCH (10:14)
[2017-12-31] MEDS: ASPIRIN 81 MG ENTERIC COATED PO SCH (10:14)
[2017-12-31] MEDS: CARVEDILOL 3.125 MG TAB PO SCH ×2 (10:14→17:34)
[2017-12-31] MEDS: CYANOCOBALAMIN INJ 1,000 MCG/ML VIAL IM SCH (10:14)
[2017-12-31] MEDS: CALCIUM ACETATE 667 MG GELCAP PO SCH (10:15)
[2017-12-31] MEDS ORDERED: HYDRALAZINE HCL 20 MG/ML VIAL IV PRN (11:45)
[2017-12-31] MEDS ORDERED: CARVEDILOL 3.125 MG TAB PO STA (12:03)
--- NOTE | 2017-12-31 13:58 | Progress Note ---
DATE: December 31, 2017 PULMONARY MEDICINE PROGRESS NOTE SUBJECTIVE: Ms. Corona was seen and examined at bedside. She continues to have slow progress. She has bilateral moderate size infiltrates and edema. She is breathing on 2 L per minute by nasal cannula oxygen. No tony respiratory distress episodes. She is able to tolerate dialysis. REVIEW OF SYSTEMS: No bleeding. No rash. OBJECTIVE VITALS: Afebrile. Vital signs noted per electronic record. GENERAL: In no acute distress. Alert and calm. HEENT: Normocephalic and atraumatic. NECK: Supple. Throat midline. LUNGS: Bilateral air entry. Few rhonchi throughout. CARDIOVASCULAR: S1 and S2. No murmurs, rubs or gallops. ABDOMEN: Soft and nontender. EXTREMITIES: No clubbing. No cyanosis. There is 1+ edema. INTEGUMENT: No rash. No purpura. LABS: Potassium 4.3, creatinine 4.9. White count 9, hematocrit 29, and platelets 371,000. IMPRESSION AND PLAN 1. Bilateral pneumonitis, chronic. 2. Treat for interstitial lung disease, suspected. 3. Fluid overload. 4. End-stage renal disease. 5. Severe protein calorie malnutrition. 6. Weakness. Once again, it is reasonable to recommend bronchoscopy with moderate to high recommendations. I have discussed this, but due to personal preferences given her age as the biggest justification, the family and patient have not consented for bronchoscopy. Continue dialysis 3 times a week, which I believe is Wednesday, and Wednesday. The patient will have continued negative fluid balance as tolerated. AFB of stool was sent off, and AFB of sputum is still being requested. The antibody is still pending, and will make sure the cryptococcal and the histoplasmosis assays are being done. These were ordered again. Job#: [id number] TORI
[2017-12-31] MEDS: LOSARTAN POTASSIUM 100 MG TAB PO SCH (17:34)
[2017-12-31] MEDS: ATORVASTATIN 20 MG TAB PO SCH (21:00)
[2017-12-31] MEDS: ALPRAZOLAM 0.25 MG TAB PO PRN (21:22)
[2018-01-01] VITALS (9 sets, daily range): BP systolic 91–176; BP diastolic 55–79
[2018-01-01] MEDS: ALBUTEROL SULF 0.083% NEB SOLN 3 ML NEB NEB SCH ×5 (03:30→19:00)
[2018-01-01] MEDS: PIPERACILLIN/TAZO 2.25 GM 50 ML IV SCH ×5 (05:22→23:50)
[2018-01-01] MEDS: LEVOTHYROXINE SODIUM 75 MCG TAB PO SCH (05:22)
--- NOTE | 2018-01-01 07:16 | Diagnostic Imaging Report ---
Examination: Single AP view of the chest. COMPARISON: December 31, 2017 INDICATION: Shortness of breath DISCUSSION: Lines/tubes: Dialysis catheter with tip in the right atrium. Lungs: Stable pulmonary edema. Pleura: Small effusions. Heart and mediastinum: Prominent heart size. Bones and soft tissues: No acute bony abnormalities. IMPRESSION: 1. Stable pulmonary edema Signed by: Dr. Louie Quevedo M.D. on 01/01/2018 7:12 AM
[2018-01-01] MEDS: CYANOCOBALAMIN INJ 1,000 MCG/ML VIAL IM SCH (07:58)
[2018-01-01] MEDS: PANTOPRAZOLE SOD 40 MG TABEC PO SCH (07:58)
[2018-01-01] MEDS: ASPIRIN 81 MG ENTERIC COATED PO SCH (07:58)
[2018-01-01] MEDS: CALCIUM ACETATE 667 MG GELCAP PO SCH (08:01)
[2018-01-01] MEDS: LOSARTAN POTASSIUM 100 MG TAB PO SCH ×2 (08:01→16:01)
[2018-01-01] MEDS: CARVEDILOL 3.125 MG TAB PO SCH ×2 (08:01→16:01)
[2018-01-01] MEDS: IRON-VITAMIN-MINERAL CAPSULE PO SCH ×2 (08:01→16:56)
[2018-01-01] MEDS: MEGESTROL ACETATE 40 MG TAB PO SCH (08:01)
[2018-01-01] MEDS: SERTRALINE HCL 50 MG TAB PO SCH (08:02)
[2018-01-01] MEDS: EPOETIN ALFA 10000 UNIT/ML VIAL SC SCH (13:57)
--- NOTE | 2018-01-01 15:05 | Progress Note ---
DATE: January 01, 2018 PULMONARY MEDICINE PROGRESS NOTE SUBJECTIVE: Ms. Corona was seen and examined at bedside. Her daughter was present in the room when I discussed. Has 96% oxygen saturation on 2 liters per minute by nasal cannula. Multiple bowel movements. Chest x-ray is looking about the same. The daughter had questions about the patient's prognosis and medical issues. REVIEW OF SYSTEMS: No bleeding. No rash. OBJECTIVE VITALS: Afebrile. Vital signs noted per electronic record. GENERAL: In no acute distress. Alert and calm. HEENT: Normocephalic and atraumatic. NECK: Supple. Throat midline. LUNGS: Bilateral air entry. Rare rhonchi. CARDIOVASCULAR: S1 and S2. No murmurs, rubs or gallops. ABDOMEN: Soft and nontender. EXTREMITIES: No clubbing. No cyanosis. There is no edema. INTEGUMENT: No rash. No purpura. LABS: No new labs today. IMPRESSION AND PLAN 1. Fluid overload. 2. Chronic interstitial lung disease. 3. End-stage renal disease. 4. Protein-calorie malnutrition. Continue encouraging diet as feasible. Dialysis today if needed. Continue her dialysis on Wednesday, and Wednesday. For now, the patient will continue conservative treatment by her choice. We can still offer bronchoscopy if she wishes and then consider progression to surgical lung biopsy. Will follow along as they wish conservatively for now. Continue antibiotics. Job#: [id number]
[2018-01-01] MEDS: ALPRAZOLAM 0.25 MG TAB PO PRN (19:41)
[2018-01-01] MEDS: ATORVASTATIN 20 MG TAB PO SCH (19:41)
[2018-01-01] MEDS: ACETAMINOPHEN 325 MG TAB PO PRN (19:42)
[2018-01-01] MEDS: ALBUTEROL/IPRATROPIUM 3 ML NEB INH PRN (20:30)
[2018-01-02] MEDS: ALBUTEROL SULF 0.083% NEB SOLN 3 ML NEB NEB SCH ×7 (03:00→23:00)
[2018-01-02 03:50] VITALS: BP 146/77
[2018-01-02] MEDS: PIPERACILLIN/TAZO 2.25 GM 50 ML IV SCH ×3 (05:09→17:01)
[2018-01-02] MEDS: LEVOTHYROXINE SODIUM 75 MCG TAB PO SCH (05:09)
[2018-01-02 06:02] LABS: BASOPHILS # (AUTO) 0.1 (0.0-0.1); BASOPHILS % 0.6 % (0.0-1.0); EOSINOPHILS # (AUTO) 0.8 (0.0-0.4); EOSINOPHILS % 8.9 % (0.0-6.0); HEMOGLOBIN 8.2 g/dL (12.0-16.0); LYMPHOCYTES # (AUTO) 2.5 (1.0-3.2); LYMPHOCYTES % 29.2 % (18.0-39.1); MEAN CORPUSCULAR HGB CONC 32.8 g/dL (31-35); MEAN CORPUSCULAR VOLUME 88.3 fL (81-99); MONOCYTES # (AUTO) 0.5 (0.2-0.8); MONOCYTES % 6.3 % (4.4-11.3); NEUTROPHILS # (AUTO) 4.6 (2.1-6.9); NEUTROPHILS % 54.6 % (38.7-80.0); PLATELET COUNT 227 x10e3/uL (140-360); RED BLOOD COUNT 2.83 x10e6/uL (3.6-5.1); RED CELL DISTRIBUTION WIDTH 16.1 % (11.7-14.4)
[2018-01-02 07:16] VITALS: BP 144/65
[2018-01-02 07:42] VITALS: BP 144/65
[2018-01-02] MEDS: PANTOPRAZOLE SOD 40 MG TABEC PO SCH (08:07)
[2018-01-02] MEDS: ASPIRIN 81 MG ENTERIC COATED PO SCH (08:07)
[2018-01-02] MEDS: CYANOCOBALAMIN INJ 1,000 MCG/ML VIAL IM SCH (08:07)
[2018-01-02] MEDS: CARVEDILOL 3.125 MG TAB PO SCH ×2 (08:10→16:49)
[2018-01-02] MEDS: LOSARTAN POTASSIUM 100 MG TAB PO SCH ×2 (08:10→16:55)
[2018-01-02] MEDS: CALCIUM ACETATE 667 MG GELCAP PO SCH (08:11)
[2018-01-02] MEDS: IRON-VITAMIN-MINERAL CAPSULE PO SCH ×2 (08:11→16:55)
[2018-01-02] MEDS: MEGESTROL ACETATE 40 MG TAB PO SCH (08:11)
[2018-01-02] MEDS: SERTRALINE HCL 50 MG TAB PO SCH (08:27)
[2018-01-02 11:29] VITALS: BP 105/55
[2018-01-02 15:39] VITALS: BP 138/61
[2018-01-02 20:00] VITALS: BP 143/67
[2018-01-02] MEDS: ATORVASTATIN 20 MG TAB PO SCH (21:02)
[2018-01-03] VITALS (7 sets, daily range): BP systolic 129–180; BP diastolic 64–85
[2018-01-03] MEDS: PIPERACILLIN/TAZO 2.25 GM 50 ML IV SCH ×2 (00:03→05:54)
[2018-01-03] MEDS: ALBUTEROL SULF 0.083% NEB SOLN 3 ML NEB NEB SCH ×6 (03:00→23:45)
[2018-01-03] MEDS: LEVOTHYROXINE SODIUM 75 MCG TAB PO SCH (05:54)
--- NOTE | 2018-01-03 06:56 | Diagnostic Imaging Report ---
EXAMINATION: CHEST SINGLE (PORTABLE) INDICATION: Pulmonary edema COMPARISON: 01/01/2018 FINDINGS: TUBES and LINES: Left IJ dual-lumen dialysis catheter LUNGS: Lungs are not well inflated. There are bibasilar atelectasis. Improving interstitial edema. PLEURA: No pleural effusion or pneumothorax. HEART AND MEDIASTINUM: The cardiomediastinal silhouette is unremarkable. There are atherosclerotic calcifications within the aorta. BONES AND SOFT TISSUES: No acute osseous lesion. Soft tissues are unremarkable. UPPER ABDOMEN: No free air under the diaphragm. IMPRESSION: Improvement in diffuse interstitial edema. Signed by: Dr. Stephan Perrin M.D. on 01/03/2018 6:53 AM
[2018-01-03] MEDS: ASPIRIN 81 MG ENTERIC COATED PO SCH (08:53)
[2018-01-03] MEDS: PANTOPRAZOLE SOD 40 MG TABEC PO SCH (08:53)
[2018-01-03] MEDS: CYANOCOBALAMIN INJ 1,000 MCG/ML VIAL IM SCH (08:53)
[2018-01-03] MEDS: CARVEDILOL 3.125 MG TAB PO SCH (08:54)
[2018-01-03] MEDS: LOSARTAN POTASSIUM 100 MG TAB PO SCH ×2 (08:54→17:42)
[2018-01-03] MEDS: MEGESTROL ACETATE 40 MG TAB PO SCH (08:54)
[2018-01-03] MEDS: IRON-VITAMIN-MINERAL CAPSULE PO SCH ×2 (08:54→17:41)
[2018-01-03] MEDS: SERTRALINE HCL 50 MG TAB PO SCH (08:54)
[2018-01-03] MEDS: CALCIUM ACETATE 667 MG GELCAP PO SCH (08:54)
[2018-01-03] MEDS: ALPRAZOLAM 0.25 MG TAB PO PRN (10:47)
--- NOTE | 2018-01-03 11:19 | Progress Note ---
DATE: January 02, 2018 PULMONARY MEDICINE PROGRESS NOTE SUBJECTIVE: Ms. Corona was seen and examined at bedside. She continues to have slow progress. No tony complaints regarding her breathing. Her appetite is okay when she has good food, she states. Patient, however, still having low in energy. Patient denies hacking up any large sputum. REVIEW OF SYSTEMS: No bleeding. No rash. OBJECTIVE VITALS: Afebrile. Vital signs noted per electronic record. GENERAL: In no acute distress. Alert and calm. HEENT: Normocephalic, atraumatic. NECK: Supple. Throat midline. LUNGS: Bilateral air entry. Few rhonchi. CARDIOVASCULAR: S1, S2. No murmurs, rubs or gallops. ABDOMEN: Soft, nontender. EXTREMITIES: No clubbing, no cyanosis. There is no edema. INTEGUMENT: No rash, no purpura. LABS: 8 white count, 23.5 hematocrit, platelets 227,000. IMPRESSIONS AND PLAN 1. Pneumonia. 2. Chronic interstitial lung disease. 3. Fluid overload. 4. End-stage renal disease. 5. Weakness. Continue current treatment. At this time, continue conservative treatment as set forth by patient and family. However, we are willing to offer bronchoscopy and possibly surgical lung biopsies if needed given the patient's baseline functional status. However, for them, it is age related where they decide and may not want to undergo these procedures. Continue keep the patient's negative balance if possible with dialysis. Continue antibiotics as well. Will follow along closely. Job#: [id number]
--- NOTE | 2018-01-03 14:10 | Progress Note ---
DATE: January 03, 2018 PULMONARY MEDICINE PROGRESS NOTE SUBJECTIVE: Ms. Corona was seen and examined at bedside. She continues to have no new complaints. She is on nasal cannula oxygen. No respiratory distress. She is able to walk around and down to the middle of the [place] today. REVIEW OF SYSTEMS: No headaches. No rash. OBJECTIVE VITALS: Afebrile. Vital signs noted per electronic record. GENERAL: In no acute distress. Alert and calm. HEENT: Normocephalic and atraumatic. NECK: Supple. Throat midline. LUNGS: Bilateral air entry. Clear but limited. CARDIOVASCULAR: S1 and S2. No murmurs, rubs or gallops. ABDOMEN: Soft and nontender. EXTREMITIES: No clubbing. No cyanosis. There is no edema. INTEGUMENT: No rash. No purpura. IMPRESSION AND PLAN 1. Acute pneumonia. 2. Chronic interstitial lung disease. 3. Fluid overload. 4. Weakness. 5. End-stage renal disease. 6. Severe protein calorie malnutrition. Continue to encourage diet as much as possible. Ambulate the patient and mobilize her. Continue with aggressive dialysis to dry weight as much as tolerated. Patient still wishes for conservative treatment of her lung condition. Job#: [id number] TORI
[2018-01-03] MEDS: CARVEDILOL 12.5 MG TAB PO SCH (17:41)
[2018-01-03] MEDS: ATORVASTATIN 20 MG TAB PO SCH (21:44)
[2018-01-04] VITALS: BP 138/63
[2018-01-04] MEDS: ALBUTEROL SULF 0.083% NEB SOLN 3 ML NEB NEB SCH ×4 (03:00→15:00)
[2018-01-04 04:00] VITALS: BP 155/70
[2018-01-04] MEDS: LEVOTHYROXINE SODIUM 75 MCG TAB PO SCH (05:54)
[2018-01-04 07:03] LABS: ANION GAP 18.2 mmol/L (8-16); CALCIUM 7.9 mg/dL (8.4-10.2); CREATININE, SERUM 7.2 mg/dL (0.57-1.11); POTASSIUM 4.2 mmol/L (3.5-5.1)
[2018-01-04 07:20] VITALS: BP 147/70
[2018-01-04 08:00] VITALS: BP 147/70
[2018-01-04] MEDS: LOSARTAN POTASSIUM 100 MG TAB PO SCH (09:00)
[2018-01-04] MEDS: CARVEDILOL 12.5 MG TAB PO SCH (09:00)
[2018-01-04] MEDS: SERTRALINE HCL 50 MG TAB PO SCH (09:00)
[2018-01-04] MEDS: PANTOPRAZOLE SOD 40 MG TABEC PO SCH (09:11)
[2018-01-04] MEDS: CYANOCOBALAMIN INJ 1,000 MCG/ML VIAL IM SCH (09:11)
[2018-01-04] MEDS: ASPIRIN 81 MG ENTERIC COATED PO SCH (09:11)
[2018-01-04] MEDS: IRON-VITAMIN-MINERAL CAPSULE PO SCH (09:13)
[2018-01-04] MEDS: CALCIUM ACETATE 667 MG GELCAP PO SCH (09:13)
[2018-01-04] MEDS: MEGESTROL ACETATE 40 MG TAB PO SCH (09:13)
[2018-01-04 12:00] VITALS: BP 114/64
[2018-01-04] MEDS: ACETAMINOPHEN 325 MG TAB PO PRN (12:05)
[2018-01-04] MEDS: EPOETIN ALFA 10000 UNIT/ML VIAL SC SCH (12:44)
[2018-01-04] MEDS ORDERED: HEPARIN SOD (PORCINE) 1000 UNIT/ML SDV IV PRN (13:00)
[2018-01-04] MEDS ORDERED: HEPARIN SOD (PORCINE) 1000 UNIT/ML 10ML MDV IM ONE (13:00)
--- NOTE | 2018-01-04 14:08 | Progress Note ---
DATE: January 04, 2018 PULMONARY MEDICINE PROGRESS NOTE SUBJECTIVE: Ms. Corona was seen and examined at bedside. She continues to have steady progress. Patient is tolerating dialysis so far with a goal of 3 L of output. The patient with 3 L per minute by nasal cannula oxygen. The patient ate three-quarters of her diet she says. She is able to walk down the [place] today. REVIEW OF SYSTEMS: No headaches. No rash. OBJECTIVE VITALS: Afebrile. Vital signs noted per electronic record. GENERAL: In no acute distress. Alert and calm. HEENT: Normocephalic and atraumatic. NECK: Supple. Throat midline. LUNGS: Bilateral air entry. Rare rhonchi. CARDIOVASCULAR: S1 and S2. No murmurs, rubs or gallops. ABDOMEN: Soft and nontender. EXTREMITIES: No clubbing. No cyanosis. There is no edema. INTEGUMENT: No rash. No purpura. LABS: BUN 57, creatinine 7.2, potassium 4.2. IMPRESSION AND PLAN 1. End-stage renal disease. 2. Acute pneumonia. 3. Chronic pneumonitis. 4. Fluid overload. 5. Weakness. Continue treatment. Dialysis today. Get the patient as negative as possible. Family and patient defer invasive diagnostics, so continue and finish course of antibiotics, and then keep the patient negative as possible. Will follow along closely. The patient may be going to residential facility soon. Job#: [id number] TORI
[2018-01-04 16:00] VITALS: BP 139/63
== END 2018-01-04 17:11 | DRG 177 ==
LOC: ER 07:37 → ERHOLD 09:26 → ICU 11:50 → MED/SURG3 12-29 17:31
PROC: 30233N1 Transfusion of Nonautologous Red Blood Cells into Peripheral Vein, Percutaneous Approach (ICD-10-PCS; principal; 2017-12-26)
PROC: 5A1D70Z Performance of Urinary Filtration, Intermittent, Less than 6 Hours Per Day (ICD-10-PCS; 2017-12-26)
PROC: 5A1D70Z Performance of Urinary Filtration, Intermittent, Less than 6 Hours Per Day (ICD-10-PCS; 2017-12-27)
PROC: 5A1D70Z Performance of Urinary Filtration, Intermittent, Less than 6 Hours Per Day (ICD-10-PCS; 2017-12-28)
PROC: 5A1D70Z Performance of Urinary Filtration, Intermittent, Less than 6 Hours Per Day (ICD-10-PCS; 2017-12-30)
PROC: 5A1D70Z Performance of Urinary Filtration, Intermittent, Less than 6 Hours Per Day (ICD-10-PCS; 2018-01-04)
DX: J69.0 Pneumonitis due to inhalation of food and vomit (principal); I50.23 Acute on chronic systolic (congestive) heart failure; N18.6 End stage renal disease; E43 Unspecified severe protein-calorie malnutrition; I21.4 Non-ST elevation (NSTEMI) myocardial infarction; I13.2 Hypertensive heart and chronic kidney disease with heart failure and with stage 5 chronic kidney disease, or end stage renal disease; D62 Acute posthemorrhagic anemia; N39.0 Urinary tract infection, site not specified; J15.9 Unspecified bacterial pneumonia; Z99.2 Dependence on renal dialysis; D63.1 Anemia in chronic kidney disease; E83.39 Other disorders of phosphorus metabolism; H91.90 Unspecified hearing loss, unspecified ear; E78.5 Hyperlipidemia, unspecified; E03.9 Hypothyroidism, unspecified; I25.2 Old myocardial infarction; R53.1 Weakness; J84.9 Interstitial pulmonary disease, unspecified; D50.9 Iron deficiency anemia, unspecified; E53.8 Deficiency of other specified B group vitamins
CPT/HCPCS: 36415; 36430; 36600; 71045; 76770; 80048; 80053; 80061; 81001; 82270; 82550; 82553; 82607; 82728; 82746; 82805; 83540; 83605; 83735; 84100; 84466; 84484; 85014; 85018; 85025; 85610; 85730; 86635; 86704; 86706; 86850; 86900; 86920; 87040; 87086; 87116; 87206; 87340; 90962; 93005; 93306; 94640; 96372; 96375; 99284; J1644; J1940; J2405; J2543; J3370; J3420; J7030; J7050; P9016; Q4081